=== PATIENT | male | born 1950 | race Caucasian/White ===

== ENCOUNTER → 2018-04-17 | Outpatient (CLI) | payer MEDICARE, OTHER ==
[~2018-04-17] MED LIST: GADOBUTROL 10 MMOL/10 ML PFS ONE
== END | disposition home or self-care (01) ==
LOC: CFH 08:37
PROVIDERS: ATTEND Otolaryngology
DX: G31.89 Other specified degenerative diseases of nervous system (principal); J32.8 Other chronic sinusitis; H90.3 Sensorineural hearing loss, bilateral
CPT/HCPCS: 70553; A9585